=== PATIENT | male | born 1990 | race Two or more races ===

== ENCOUNTER 2019-04-02 19:21 | Emergency (ER) | payer BC, OTHER ==
[~2019-04-02] VITALS: Ht 185.4 cm; Wt 79.4 kg
[2019-04-02 21:59] VITALS: BP 137/89
[2019-04-02] MEDS ORDERED: METHOCARBAMOL 500 MG TAB PO ONE (23:30)
== END 2019-04-02 23:44 | disposition home or self-care (01) ==
LOC: ER 19:25
DX: M62.838 Other muscle spasm (principal)
CPT/HCPCS: 72040; 73100

== ENCOUNTER 2023-04-28 12:36 | Emergency (ER) | payer BC, OTHER ==
[~2023-04-28] VITALS: Ht 188 cm; Wt 97.1 kg
[2023-04-28 13:30] VITALS: BP 133/93; PULSE 95; RESP 19; TEMP 98.3; O2SAT 96
[2023-04-28] MEDS ORDERED: KETOROLAC TROMETH 60MG/2ML VIAL IM ONE (15:00)
[2023-04-28] MEDS ORDERED: METH-1182 PO (15:31)
[2023-04-28] MEDS ORDERED: IBUP-1456 PO (15:31)
== END 2023-04-28 15:36 | disposition home or self-care (01) ==
LOC: ER 12:36
DX: S16.1XXA Strain of muscle, fascia and tendon at neck level, initial encounter (principal); R51.9 Headache, unspecified; F41.9 Anxiety disorder, unspecified; Z87.891 Personal history of nicotine dependence; W18.09XA Striking against other object with subsequent fall, initial encounter; Y93.89 Activity, other specified; Y92.89 Other specified places as the place of occurrence of the external cause; Y99.8 Other external cause status
CPT/HCPCS: 70450; 72125; 96372; 99285; J1885